=== PATIENT | female | born 1975 | race Caucasian/White ===

== ENCOUNTER 2017-01-10 07:52 | Emergency (ER) | payer OTHER ==
[2017-01-10 08:00] VITALS: BMI 31.1
--- NOTE | 2017-01-10 08:03 | PDOC ---
History of Present Illness - General History Source: Patient Exam Limitations: No Limitations - History of Present Illness Initial Comments: 01/10/17 08:44 The patient is a 41 year old approximately 6 weeks female (), with a significant past medical history of endometriosis and pre-eclampsia/diabetes( associated with ), who presents to the emergency department complaining of vaginal bleeding for approximately 2 weeks. The patient reports the bleeding has been relatively light since it began. However, yesterday, she reports experiencing heavy bleeding and abdominal pain similar to when she has her period. The patient describes the pain as crampy in nature. She reports a positive at home test and states she has an appointment with her OB/ INBOUND SALES REPRESENTATIVE, Dr. Washburn on 01/17/17. The patient reports 2 vaginal deliveries during her past pregnancies. She reports a history of vaginal bleeding and associated abdominal pain. The patient denies any nausea, vomiting, diarrhea, or constipation. The patient denies any dysuria, frequency, urgency, or hematuria. The patient denies any fever, chills, cough, headache, or dizziness. Allergies: None reported. Past Surgical History: None reported. Social History: Non-smoker. Denies alcohol or drug use. 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 ([phone]) <Claire Cosme - Last Filed: 01/10/17 12:19> <Anastacia Miller - Last Filed: 01/11/17 08:21> - General Chief Complaint: Vaginal Bleeding Stated Complaint: VAGNIAL BLEED Time Seen by Provider: 01/10/17 08:02 Past History <Claire Cosme - Last Filed: 01/10/17 12:19> - Past Medical History Other medical history: endometriosis - Immunization History Immunization Up to Date: No - Psycho/Social/Smoking Cessation Hx Anxiety: No Suicidal Ideation: No Smoking History: Never smoked Have you smoked in the past 12 months: No Information on smoking cessation initiated: No Hx Alcohol Use: No Drug/Substance Use Hx: No Substance Use Type: None <Anastacia Miller - Last Filed: 01/11/17 08:21> - Past Medical History Allergies/Adverse Reactions: Allergies Allergy/AdvReac Type Severity Reaction Status Date / Time No Known Allergies Allergy Verified 01/10/17 07:57 Home Medications: Ambulatory Orders NK [No Known Home Medication] 01/10/17 Review of Systems - Review of Systems Able to Perform ROS?: Yes Comments:: 01/10/17 08:44 GENERAL/CONSTITUTIONAL: No fever or chills. No weakness. HEAD, EYES, EARS, NOSE AND THROAT: No change in vision. No ear pain or discharge. No sore throat. CARDIOVASCULAR: No chest pain or shortness of breath. RESPIRATORY: No cough, wheezing, or hemoptysis. GASTROINTESTINAL: +Abdominal pain. No nausea, vomiting, diarrhea or constipation. GENITOURINARY: No dysuria, frequency, or change in urination. PELVIC: + Vaginal bleeding MUSCULOSKELETAL: No joint or muscle swelling or pain. No neck or back pain. SKIN: No rash NEUROLOGIC: No headache, vertigo, loss of consciousness, or change in strength/ sensation. ENDOCRINE: No increased thirst. No abnormal weight change. HEMATOLOGIC/LYMPHATIC: No anemia, easy bleeding, or history of blood clots. ALLERGIC/IMMUNOLOGIC: No hives or skin allergy. <Claire Cosme - Last Filed: 01/10/17 12:19> *Physical Exam - Vital Signs Last Vital Signs Temp Pulse Resp BP Pulse Ox 98.1 F 72 18 137/87 100 01/10/17 07:57 01/10/17 07:57 01/10/17 07:57 01/10/17 07:57 01/10/17 08:10 <Claire Cosme - Last Filed: 01/10/17 12:19> - Vital Signs Last Vital Signs Temp Pulse Resp BP Pulse Ox 98.1 F 72 18 137/87 100 01/10/17 07:57 01/10/17 07:57 01/10/17 07:57 01/10/17 07:57 01/10/17 07:57 - Physical Exam Comments: GENERAL: Awake, alert, and fully oriented, in no acute distress HEAD: No signs of trauma EYES: PERRLA, EOMI, sclera anicteric, conjunctiva clear ENT: Auricles normal inspection, hearing grossly normal, nares patent, oropharynx clear without exudates. Moist mucosa NECK: Normal ROM, supple, no lymphadenopathy, JVD, or masses LUNGS: Breath sounds equal, clear to auscultation bilaterally. No wheezes, and no crackles HEART: Regular rate and rhythm, normal S1 and S2, no murmurs, rubs or gallops ABDOMEN: Soft, nontender, normoactive bowel sounds. No guarding, no rebound. No masses EXTREMITIES: Normal range of motion, no edema. No clubbing or cyanosis. No cords, erythema, or tenderness NEUROLOGICAL: Cranial nerves II through XII grossly intact. Normal speech, normal gait SKIN: Warm, Dry, normal turgor, no rashes or lesions noted. : No external lesions. Sm blood in the vault. Os closed. +R adnexal tenderness. <Anastacia Miller - Last Filed: 01/11/17 08:21> ED Treatment Course - LABORATORY CBC & Chemistry Diagram: 01/10/17 08:10 01/10/17 10:32 - RADIOLOGY Radiograph Interpretation: 01/10/17 11:42 EXAM: Pelvic US INTERPRETED BY: Dr. Medellin REVIEWED BY: Dr. Miller IMPRESSION: Single intrauterine with estimated gestational age of 6 weeks 1 day based on the crown- rump length. Low heart activity could be detected consistent with demise. Correlation with serial quantitative serum beta hCG and follow-up ultrasound is needed. <Claire Cosme - Last Filed: 01/10/17 12:19> - LABORATORY CBC & Chemistry Diagram: 01/10/17 08:10 01/10/17 10:32 <Anastacia Miller - Last Filed: 01/11/17 08:21> Medical Decision Making - Medical Decision Making 01/10/17 12:19 First call placed to Dr. Washburn at 12:19, case discussed at this time. <Claire Cosme - Last Filed: 01/10/17 12:19> - Medical Decision Making 01/10/17 12:19 Case d/w Dr. Washburn. He will expedite her outpatient f/u. Patient was connected with his department secretary, who will schedule her for first available appt next week (it is currently Friday). <Anastacia Miller - Last Filed: 01/11/17 08:21> *DC/Admit/Observation/Transfer - Attestations Scribe Attestion: 01/10/17 08:45 Documentation prepared by Claire Cosme, acting as medical device sales consultant for Anastacia Miller MD. <Claire Cosme - Last Filed: 01/10/17 12:19> - Discharge Dispostion Admit: No <Anastacia Miller - Last Filed: 01/11/17 08:21> Diagnosis at time of Disposition: Threatened - Discharge Dispostion Disposition: HOME Condition at time of disposition: Stable - Referrals Referrals: Alex Jung [Primary Care Provider] - - Patient Instructions Printed Discharge Instructions: DI for Threatened
[2017-01-10 08:32] LABS: BASOPHIL 1.2 % (0-2.0); EOSINOPHIL 0.8 % (0-4.5); MCH 30.3 pg (25.7-33.7); MCHC 32.7 g/dl (32.0-36.0); MEAN CELL VOLUME 92.5 fl (80-96); MEAN PLT VOLUME 9.1 fl (7.5-11.1); NEUTROPHILS 62.6 % (42.8-82.8); PLATELET COUNT 278 K/MM3 (134-434); RDW 17.1 % (11.6-15.6); WHITE BLOOD COUNT 10.5 K/mm3 (4.0-10.0)
[2017-01-10 08:34] LABS: URINE APPEARANCE SLCLOUDY; URINE BILIRUBIN NEGATIVE (NEGATIVE); URINE COLOR YELLOW; URINE GLUCOSE (UA) NEGATIVE (NEGATIVE); URINE KETONE NEGATIVE (NEGATIVE); URINE NITRITE NEGATIVE (NEGATIVE); URINE UROBILINOGEN NEGATIVE E.U./dl (0.2-1.0)
[2017-01-10 08:45] LABS: URINE BLOOD 3+ (NEGATIVE); URINE LEUK ESTERASE TRACE (NEGATIVE); URINE PROTEIN 1+ (NEGATIVE)
[2017-01-10 08:53] LABS: URINE MUCUS FEW; URINE RBC 611 /hpf (0-3); URINE WBC 5 /hpf (3-5)
[2017-01-10 11:23] LABS: ALBUMIN 3.5 g/dl (3.4-5.0); ANION GAP 8 (8-16); BILIRUBIN,TOTAL 0.3 mg/dL (0.2-1.0); CALCIUM 8.6 mg/dL (8.5-10.1); CO2 27 mmol/L (21-32); CREATININE 0.5 mg/dL (0.55-1.02); GLUCOSE,RANDOM 76 mg/dL (74-106); SGOT/AST 13 U/L (15-37); SGPT/ALT 15 U/L (12-78); TOT PROT 7.2 g/dl (6.4-8.2)
[2017-01-10 11:39] LABS: ALK PHOS 74 U/L (45-117)
[2017-01-10 13:19] VITALS: BP 151/87; PULSE 86; TEMP 97.9
== END 2017-01-10 13:10 | disposition home or self-care (01) ==
LOC: JER 07:52
DX: O20.0 Threatened abortion (principal); Z3A.01 Less than 8 weeks gestation of pregnancy
CPT/HCPCS: 36415; 76817-TC; 76856-TC; 80053; 81003; 81015; 84702; 85025; 86850; 86900; 86901; 99284-25

== ENCOUNTER 2017-02-02 19:35 | Emergency (ER) | payer OTHER ==
[2017-02-02 19:40] VITALS: TEMP 98.1; BMI 34.7
--- NOTE | 2017-02-02 19:51 | PDOC ---
History of Present Illness - History of Present Illness Initial Comments: 02/02/17 20:58 Patient is a 41 year old female with significant medical hx of endometriosis who is presenting to the ED with progressive right sided abdominal pain, chills , and nausea for five days. Patient complains of right sided, constant abdominal pain that she characterizes as pulsating. Her pain is non-radiating and not accompanied with any vomiting or diarrhea. Patients bowel movements have been normal and regular. The patient also reports some urinary symptoms such as burning with urination and urgency without being able to fully empty her bladder. Patient endorses some decreased appetite as well. Denies fever. The patient has had UTIs in the past but states that does not feel like her past UTIs. <Josefina Thurman - Last Filed: 02/02/17 23:10> <Chemo Cavanaugh - Last Filed: 02/03/17 00:44> - General Chief Complaint: Pain Stated Complaint: ABD PAIN Past History <Josefina Thurman - Last Filed: 02/02/17 23:10> - Reproductive History (#): 3 Para: 2 - Immunization History Immunization Up to Date: No - Psycho/Social/Smoking Cessation Hx Anxiety: No Suicidal Ideation: No Smoking History: Never smoked Have you smoked in the past 12 months: No Information on smoking cessation initiated: No Hx Alcohol Use: No Drug/Substance Use Hx: No Substance Use Type: None <Chemo Cavanaugh - Last Filed: 02/03/17 00:44> - Past Medical History Allergies/Adverse Reactions: Allergies Allergy/AdvReac Type Severity Reaction Status Date / Time No Known Allergies Allergy Verified 02/02/17 19:37 Home Medications: Ambulatory Orders NK [No Known Home Medication] 01/10/17 Review of Systems - Review of Systems Comments:: 02/02/17 20:59 GENERAL/CONSTITUTIONAL: Chills. Decreased appetite. No fever. No weakness. HEAD, EYES, EARS, NOSE AND THROAT: No change in vision. No ear pain or discharge. No sore throat. CARDIOVASCULAR: No chest pain or shortness of breath. RESPIRATORY: No cough, wheezing, or hemoptysis. GASTROINTESTINAL: Nausea, right sided abdominal pain. No vomiting, diarrhea or constipation. GENITOURINARY: Dysuria, urgency. No frequency. MUSCULOSKELETAL: No joint or muscle swelling or pain. No neck or back pain. SKIN: No rash NEUROLOGIC: No headache, vertigo, loss of consciousness, or change in strength/ sensation. <Josefina Thurman - Last Filed: 02/02/17 23:10> *Physical Exam - Vital Signs Last Vital Signs Temp Pulse Resp BP Pulse Ox 98.1 F 71 14 121/77 97 02/02/17 19:37 02/02/17 19:37 02/02/17 19:37 02/02/17 19:37 02/02/17 19:37 - Physical Exam Comments: 02/02/17 21:00 GENERAL: Awake, alert, and fully oriented, in no acute distress HEAD: No signs of trauma EYES: PERRLA, EOMI, sclera anicteric, conjunctiva clear ENT: Auricles normal inspection, hearing grossly normal, nares patent, oropharynx clear without exudates. Moist mucosa NECK: Normal ROM, supple, no lymphadenopathy, JVD, or masses LUNGS: Breath sounds equal, clear to auscultation bilaterally. No wheezes, and no crackles HEART: Regular rate and rhythm, normal S1 and S2, no murmurs, rubs or gallops ABDOMEN: Soft, pain on palpation mid axillary line at the base of the lower rib , no patel's sign, normoactive bowel sounds. No guarding, no rebound. No masses EXTREMITIES: Normal range of motion, no edema. No clubbing or cyanosis. No cords, erythema, or tenderness MUSCULOSKELETAL: Questionable right sided cva tenderness NEUROLOGICAL: Cranial nerves II through XII grossly intact. Normal speech, normal gait SKIN: Warm, Dry, normal turgor, no rashes or lesions noted. ENDOCRINE: No increased thirst. No abnormal weight change. HEMATOLOGIC/LYMPHATIC: No anemia, easy bleeding, or history of blood clots. ALLERGIC/IMMUNOLOGIC: No hives or skin allergy. <Josefina Thurman - Last Filed: 02/02/17 23:10> - Vital Signs Last Vital Signs Temp Pulse Resp BP Pulse Ox 98.1 F 71 14 121/77 97 02/02/17 19:37 02/02/17 19:37 02/02/17 19:37 02/02/17 19:37 02/02/17 19:37 <Chemo Cavanaugh - Last Filed: 02/03/17 00:44> ED Treatment Course - LABORATORY CBC & Chemistry Diagram: 02/02/17 20:52 02/02/17 20:52 - RADIOLOGY Radiograph Interpretation: 02/02/17 23:02 Merchandising Representative: ([email or web address]) Report Date: 02/02/2017 21:59:00 Report Status: Preliminary Begin of Report Content Referring Physician: Chemo Cavanaugh Patient Name: Nereyda Brower THIS IS A PRELIMINARY REPORT FROM IMAGING ROLLER INSPECTOR IMAGES: 482 EXAM DATE AND TIME: 2017-02-02 21:59:10.0 EXAM: CT ABDOMEN AND PELVIS WITH CONTRAST Punctate stone left kidney. No pyelonephritis. No bowel obstruction, colitis, diverticulitis, free fluid or free air. Normal appendix. Unremarkable pancreas and gallbladder. 2.4 cm and 1.6 cm left ovarian follicles. THIS DOCUMENT HAS BEEN ELECTRONICALLY SIGNED Ria Zavala M.D. 02/02/2017 22:47 AMADOU Steven Please call Imaging Flowers Salesperson [phone] with questions. End of Report Content 02/02/17 23:11 Merchandising Representative: ([email or web address]) Report Date: 02/02/2017 23:04:00 Report Status: Preliminary Begin of Report Content Referring Physician: Patient Name: Nereyda Brower This is a preliminary report by imaging technology applications engineer Exam: Abdominal sonogram Images: 55 Clinical indication: Right upper quadrant pain. Findings: The visualized pancreatic parenchyma is unremarkable. The aorta has a normal appearance and normal caliber. The proximal IVC is unremarkable. The liver parenchyma is mildly hyperechoic indicative of fatty infiltration. The right kidney has a normal appearance and echotexture and measures 11.4 cm in length. No parenchymal mass, shadowing calculus or hydronephrosis is seen. The gallbladder has a normal appearance. There is no mural thickening. No calculi are seen. There is no pericholecystic fluid. The CBD measures 4 mm in diameter within normal limits. Hepatopetal flow is demonstrated in the main portal vein. Impression: Mild hepatic steatosis. Normal appearance of the gallbladder, CBD, right kidney and visualized pancreas. THIS DOCUMENT HAS BEEN ELECTRONICALLY SIGNED Stefano Haas M.D. 02/02/2017 23:05 AMADOU Steven Please call Imaging Flowers Salesperson [phone] with questions. End of Report Content <Josefina Thurman - Last Filed: 02/02/17 23:10> - LABORATORY CBC & Chemistry Diagram: 02/02/17 20:52 02/02/17 20:52 <Chemo Cavanaugh - Last Filed: 02/03/17 00:44> Medical Decision Making - Medical Decision Making 02/03/17 00:43 This is a 41yo F with vague and nonspecific abdominal pain which is actually in the RIGHT midaxillary area. She has a negative evaluation otherwise. She is encouraged to follow up with the PMD within the next 48 hours. Vitals are wnl. <Chemo Cavanaugh - Last Filed: 02/03/17 00:44> *DC/Admit/Observation/Transfer - Attestations Scribe Attestion: 02/02/17 21:03 Documentation prepared by Josefina Thurman, acting as medical research scientist for Chemo Cavanaugh MD. <Josefina Thurman - Last Filed: 02/02/17 23:10> - Discharge Dispostion Admit: No Decision to Admit order Date/Time: 02/03/17 00:41 - Attestations Physician Attestion: 02/03/17 00:43 I, Dr. Chemo Cavanaugh MD, attest that this document has been prepared under my direction and personally reviewed by me in its entirety. I further attest, that it accurately reflects all work, treatment, procedures and medical decision -making performed by me. <Chemo Cavanaugh - Last Filed: 02/03/17 00:44> Diagnosis at time of Disposition: Abdominal pain Qualifiers: Abdominal location: right upper quadrant Qualified Code(s): R10.11 - Right upper quadrant pain - Discharge Dispostion Disposition: HOME Condition at time of disposition: Guarded - Referrals Referrals: Alfredo Jung MD [Primary Care Provider] - - Patient Instructions Additional Instructions: Please follow up with your PMD within the nesxt 48 hours and if there is any change otherwise in your symptoms, please return immediately to the ED. At this time, we have no explanation for your symptoms and the gallbladder and abdominal organs are within normal limits and not suggestive of any particular diagnosis.
[2017-02-02 21:00] LABS: MCH 29.6 pg (25.7-33.7); MCHC 32.6 g/dl (32.0-36.0); MEAN CELL VOLUME 90.7 fl (80-96); MEAN PLT VOLUME 9.4 fl (7.5-11.1); NEUTROPHILS 66.2 % (42.8-82.8); PLATELET COUNT 261 K/MM3 (134-434); RDW 16.7 % (11.6-15.6)
[2017-02-02 21:01] LABS: URINE APPEARANCE CLEAR; URINE BILIRUBIN NEGATIVE (NEGATIVE); URINE COLOR LTYELLOW; URINE GLUCOSE (UA) NEGATIVE (NEGATIVE); URINE KETONE TRACE (NEGATIVE); URINE LEUK ESTERASE NEGATIVE (NEGATIVE); URINE NITRITE NEGATIVE (NEGATIVE); URINE PROTEIN NEGATIVE (NEGATIVE); URINE UROBILINOGEN NEGATIVE E.U./dl (0.2-1.0)
[2017-02-02 21:09] LABS: URINE BLOOD 2+ (NEGATIVE)
[2017-02-02 21:15] LABS: URINE MUCUS RARE; URINE RBC 8 /hpf (0-3); URINE WBC 1 /hpf (3-5)
[2017-02-02 21:16] LABS: INR 1.17 (0.82-1.09); PROTHROMBIN TIME (PATIENT) 12.9 SEC (9.98-11.88)
[2017-02-02 21:24] LABS: ALBUMIN 3.9 g/dl (3.4-5.0); ANION GAP 9 (8-16); BILIRUBIN,TOTAL 0.2 mg/dL (0.2-1.0); CALCIUM 8.5 mg/dL (8.5-10.1); CO2 27 mmol/L (21-32); CREATININE 0.7 mg/dL (0.55-1.02); GLUCOSE,RANDOM 79 mg/dL (74-106); SGPT/ALT 16 U/L (12-78); TOT PROT 7.6 g/dl (6.4-8.2)
[2017-02-02 21:28] LABS: ALK PHOS 91 U/L (45-117); SGOT/AST 15 U/L (15-37)
[2017-02-02] MEDS ORDERED: SODIUM CHLORIDE 0.9% 1000 ML INFUS.BAG IV ONE (21:46)
[2017-02-02] MEDS ORDERED: KETOROLAC TROMETHAMINE 30 MG/1 ML VIAL IVPUSH ONE (21:46)
[2017-02-02] MEDS ORDERED: KETOROLAC TROMETHAMINE 30 MG/1 ML VIAL ONE (21:54)
[2017-02-03 01:27] VITALS: BP 126/73; PULSE 66
== END 2017-02-03 01:34 | disposition home or self-care (01) ==
LOC: JER 19:35
PROC: 3E0333Z Introduction of Anti-inflammatory into Peripheral Vein, Percutaneous Approach (ICD-10-PCS; principal; 2017-02-02)
DX: R10.11 Right upper quadrant pain (principal)
CPT/HCPCS: 36415; 71020-TC; 74177-TC; 76705-TC; 80053; 81003; 81015; 83690; 83735; 85025; 85610; 86850; 86900; 86901; 96374; 99283-25

== ENCOUNTER 2017-11-18 00:04 | Emergency (ER) | payer OTHER ==
[2017-11-18 01:02] VITALS: BP 152/67; PULSE 65; TEMP 98.5; BMI 34.7
--- NOTE | 2017-11-18 01:05 | PDOC ---
History of Present Illness - General Chief Complaint: Urinary Problem Stated Complaint: LBP Time Seen by Provider: 11/18/17 01:03 History Source: Patient Exam Limitations: No Limitations - History of Present Illness Travel History: No Initial Comments: 11/18/17 01:39 LMP: 09/10/2017 No allergies 42-year-old female with no medical history presents to the emergency department complaining of her and upon urination, urinary frequency/urgency/hesitancy without hematuria, fever/chills, nausea/vomiting, chest pain, shortness of breath, abdominal pains, flank pains. Patient states she's been drinking fluids all day. Patient denies any other complaints. Patient states she has a appointment with her financial aid manager next week but will call tomorrow to get an earlier appointment. Past History - Past Medical History Allergies/Adverse Reactions: Allergies Allergy/AdvReac Type Severity Reaction Status Date / Time No Known Allergies Allergy Verified 11/18/17 00:50 Home Medications: Ambulatory Orders NK [No Known Home Medication] 01/10/17 - Reproductive History (#): 3 Para: 2 - Immunization History Immunization Up to Date: No - Suicide/Smoking/Psychosocial Hx Smoking History: Never smoked Have you smoked in the past 12 months: No Information on smoking cessation initiated: No Hx Alcohol Use: No Drug/Substance Use Hx: No Substance Use Type: None Review of Systems - Review of Systems Able to Perform ROS?: Yes Comments:: 11/18/17 01:43 CONSTITUTIONAL: Absent: fever, chills, diaphoresis, generalized weakness, malaise, loss of appetite GASTROINTESTINAL: Absent: abdominal pain, abdominal distension, nausea, vomiting, diarrhea, constipation, melena, hematochezia GENITOURINARY: + frequency, urgency, hesitancy Absent: dysuria,, hematuria, flank pain, genital pain MUSCULOSKELETAL: Absent: myalgia, arthralgia, joint swelling SKIN: Absent: rash, itching, pallor HEMATOLOGIC/IMMUNOLOGIC: Absent: easy bleeding, easy bruising, lymphadenopathy, frequent infections ENDOCRINE: Absent: unexplained weight gain, unexplained weight loss, heat intolerance, cold intolerance NEUROLOGIC: Absent: headache, focal weakness or paresthesias, dizziness, unsteady gait, seizure, mental status changes, bladder or bowel incontinence PSYCHIATRIC: Absent: anxiety, depression, suicidal or homicidal ideation, hallucinations. Is the patient limited [place]se proficient: No *Physical Exam - Vital Signs Last Vital Signs Temp Pulse Resp BP Pulse Ox 98.5 F 65 14 152/67 100 11/18/17 00:51 11/18/17 00:51 11/18/17 00:51 11/18/17 00:51 11/18/17 00:51 - Physical Exam Comments: 11/18/17 01:43 GENERAL: Well developed, well nourished. Awake and alert. No acute distress. HEENT: Normocephalic, atraumatic. PERRLA, EOMI. No conjunctival pallor. Sclera are non- icteric. Moist mucous membranes. Oropharynx is clear. NECK: Supple. Full ROM. No JVD. Carotid pulses 2+ and symmetric, without bruits. No thyromegaly. No lymphadenopathy. CARDIOVASCULAR: Regular rate and rhythm. No murmurs, rubs, or gallops. Distal pulses are 2+ and symmetric. PULMONARY: No evidence of respiratory distress. Lungs clear to auscultation bilaterally. No wheezing, rales or rhonchi. ABDOMINAL: Soft. Non-tender. Non-distended. No rebound or guarding. No organomegaly. Normoactive bowel sounds. SKIN: Warm and dry. Normal capillary refill. No rashes. No jaundice. *DC/Admit/Observation/Transfer Diagnosis at time of Disposition: UTI (urinary tract infection) Qualifiers: Urinary tract infection type: acute cystitis Hematuria presence: without hematuria Qualified Code(s): N30.00 - Acute cystitis without hematuria - Discharge Dispostion Disposition: HOME Condition at time of disposition: Stable Admit: No - Referrals Referrals: Alfredo Jung MD [Primary Care Provider] - Shahid Washburn MD [Staff Physician] - - Patient Instructions Printed Discharge Instructions: DI for Urinary Tract Infection (UTI) Additional Instructions: INcrease fluids MUST FOLLOW UP WITH YOUR WEAVING SUPERVISOR WITHIN 48 HOURS RETURN TO THE ER FOR SEVERE/PERSISTENT/WORSENING SYMPTOMS Print Language: PUERTO RICAN - Post Discharge Activity
[2017-11-18 01:14] LABS: URINE APPEARANCE CLEAR; URINE BILIRUBIN NEGATIVE (NEGATIVE); URINE BLOOD 2+ (NEGATIVE); URINE COLOR LTYELLOW; URINE GLUCOSE (UA) NEGATIVE (NEGATIVE); URINE KETONE NEGATIVE (NEGATIVE); URINE LEUK ESTERASE NEGATIVE (NEGATIVE); URINE NITRITE NEGATIVE (NEGATIVE)
[2017-11-18 01:29] LABS: URINE PROTEIN 1+ (NEGATIVE)
[2017-11-18] MEDS ORDERED: CEPHALEXIN MONOHYDRATE 500 MG CAPSULE (UD) PO ONE (01:39)
[2017-11-18] MEDS ORDERED: CEPHALEXIN MONOHYDRATE 500 MG CAPSULE (UD) ONE ×2 (01:40→01:41)
[2017-11-18 01:55] LABS: EPI CELLS RARE /HPF (FEW); URINE MUCUS RARE
--- NOTE | 2017-11-20 07:33 | PDOC ---
Patient Follow-up (Call Back) - Post ED Follow - Up Condition at time of discharge: Stable Disposition at time of original discharge: HOME Reason for Call Back: Abnwl. Microbiology (Patient with positive urine culture was noted to be reported to Erich Adams, sensitivity is still pending, patient is on keflex.)
== END 2017-11-18 01:45 | disposition home or self-care (01) ==
LOC: JER 00:04
DX: O23.11 Infections of bladder in pregnancy, first trimester (principal); N30.90 Cystitis, unspecified without hematuria; Z3A.08 8 weeks gestation of pregnancy
CPT/HCPCS: 81003; 81015; 87086; 87186; 99281-25

== ENCOUNTER 2018-02-28 12:59 | Emergency (ER) | payer OTHER ==
[2018-02-28 13:07] VITALS: BP 155/79; PULSE 98; TEMP 98.1; BMI 36.7
--- NOTE | 2018-02-28 13:55 | PDOC ---
History of Present Illness - General Chief Complaint: Respiratory Stated Complaint: COLD LIKE SYMPTOMS (24 WKS ) Time Seen by Provider: 02/28/18 13:28 History Source: Patient Exam Limitations: No Limitations - History of Present Illness Initial Comments: 02/28/18 13:34 Patient is a 42-year-old female history of diet-controlled diabetes, hypertension currently on no medication is 24 weeks presents with 2 days of tactile fever, frontal sinus pressure with eye pressure and tearing. + nasal secretions, productive yellow/ stewart cough. Allergies: No known allergies Medications: vitamins Family History: Non-contributory Social History: Denies smoking, alcohol use, or IVDU Review of Systems GENERAL/CONSTITUTIONAL: [No fever or chills. No weakness. No weight change.] HEAD, EYES, EARS, NOSE AND THROAT: [No change in vision. No ear pain or discharge. No sore throat. + tearing, nasal congestion, + sinus pressure. ] CARDIOVASCULAR: [No chest pain or shortness of breath.] RESPIRATORY: [No cough, wheezing, or hemoptysis.] GASTROINTESTINAL: [No nausea, vomiting, diarrhea or constipation. No rectal bleeding.] GENITOURINARY: [No dysuria, frequency, or change in urination.] MUSCULOSKELETAL: [No joint or muscle swelling or pain. No neck or back pain.] SKIN AND BREASTS: [No rash or easy bruising.] NEUROLOGIC: [No headache, vertigo, loss of consciousness, or loss of sensation.] PSYCHIATRIC: [No depression or anxiety.] ENDOCRINE: [No increased thirst. No abnormal weight change.] HEMATOLOGIC/LYMPHATIC: [No anemia, easy bleeding, or history of blood clots.] ALLERGIC/IMMUNOLOGIC: [No hives or skin allergy. No latex allergy.] Physical Exam: GENERAL: [The patient is awake, alert, and fully oriented, in no acute distress. ] EYES: [Pupils equal, round and reactive to light, extraocular movements intact, sclera anicteric, conjunctiva clear. Tearing, frontal sinus pressure and pain. ] ENT: [Ears normal, Inflammed nares bilaterally with mucus, oropharynx clear without exudates. Moist mucous membranes. No uvula deviation] NECK: [Normal range of motion, supple without lymphadenopathy, JVD, or masses.] LUNGS: [Breath sounds equal, clear to auscultation bilaterally. No wheezes, and no crackles.] HEART: [Regular rate and rhythm, normal S1 and S2 without murmur, rub or gallop. ] ABDOMEN: [Gravid, Soft, nontender, normoactive bowel sounds. ] MUSCULOSKELETAL: [Normal range of motion, no edema. No clubbing or cyanosis. No cords, erythema, or tenderness. ] NEUROLOGICAL: [Cranial nerves II through XII grossly intact. Normal speech, normal gait.] SKIN: [Warm, Dry, normal turgor, no rashes or lesions noted.] Past History - Past Medical History Allergies/Adverse Reactions: Allergies Allergy/AdvReac Type Severity Reaction Status Date / Time No Known Allergies Allergy Verified 02/28/18 13:07 Home Medications: Ambulatory Orders Amox-Tr/K Cl [Augmentin - 875Mg Tablet] 1 tab PO BID #14 tablet 02/28/18 COPD: No Diabetes: Yes (gestational) HTN: Yes (gestational) - Reproductive History (#): 3 Para: 2 - Immunization History Immunization Up to Date: No - Suicide/Smoking/Psychosocial Hx Smoking History: Never smoked Have you smoked in the past 12 months: No Hx Alcohol Use: No Drug/Substance Use Hx: No Substance Use Type: None *Physical Exam - Vital Signs Last Vital Signs Temp Pulse Resp BP Pulse Ox 98.1 F 98 H 18 155/79 97 02/28/18 13:04 02/28/18 13:04 02/28/18 13:04 02/28/18 13:04 02/28/18 13:04 Medical Decision Making - Medical Decision Making 02/28/18 13:55 A/P: Patient with acute sinusitis is will DC on Augmentin which strict follow-up with ADDICTION PSYCHIATRIST. *DC/Admit/Observation/Transfer Diagnosis at time of Disposition: Sinusitis Qualifiers: Sinusitis location: frontal Chronicity: acute Recurrence: non-recurrent Qualified Code(s): J01.10 - Acute frontal sinusitis, unspecified - Discharge Dispostion Disposition: HOME Condition at time of disposition: Stable Admit: No - Prescriptions Prescriptions: Amox-Tr/K Cl [Augmentin - 875Mg Tablet] 1 tab PO BID #14 tablet - Referrals Referrals: Alfredo Jung MD [Primary Care Provider] - - Patient Instructions Printed Discharge Instructions: Sinusitis Additional Instructions: Antibiotics as ordered recommend follow-up with ADDICTION PSYCHIATRIST - Post Discharge Activity Forms/Work/School Notes: Back to Work
== END 2018-02-28 13:59 | disposition home or self-care (01) ==
LOC: JERFT 12:59
DX: O99.512 Diseases of the respiratory system complicating pregnancy, second trimester (principal); J01.10 Acute frontal sinusitis, unspecified; O24.410 Gestational diabetes mellitus in pregnancy, diet controlled; O13.2 Gestational [pregnancy-induced] hypertension without significant proteinuria, second trimester; Z3A.24 24 weeks gestation of pregnancy
CPT/HCPCS: 99281-25